=== PATIENT | male | born 1965 | race Caucasian/White ===

== ENCOUNTER 2023-08-11 16:05 | Outpatient (CLI) | payer OTHER, SELFPAY ==
--- NOTE | ~2023-08-11 | XR_ITS ---
EXAM: XR hand LT min 3V DATE: 08/11/2023 16:26 HISTORY: PAIN OF LEFT HAND . COMPARISON: None available. FINDINGS: Mildly decreased mineralization. No fracture or dislocation. No lytic or blastic lesion. M ild degenerative changes. No erosion or periosteal change. Soft tissues within normal limits. IMPRESSION: Mild osteopenia. Mild polyarticular osteoarthritis. Reviewed, dictated and finalized at location K.
== END 2023-08-11 16:06 | disposition home or self-care (01) ==
LOC: ANHIMG 16:13
PROVIDERS: PCP Internal Medicine; Visit Provider Internal Medicine
DX: M19.042 Primary osteoarthritis, left hand (principal); M85.842 Other specified disorders of bone density and structure, left hand
CPT/HCPCS: 73130

== ENCOUNTER 2024-02-16 08:53 | Outpatient (CLI) | payer OTHER, SELFPAY ==
--- NOTE | ~2024-02-16 | XR_ITS ---
XR shoulder RT min 2V DATE: 02/16/2024 09:12 INDICATION: Right shoulder pain. No injury. TECHNIQUE: 4 views COMPARISON: None FINDINGS: No fracture or dislocation, periosteal reaction or bone destruction or abnormal soft tissue calcification. IMPRESSION: No significant abnormality Reviewed, dictated and finalized at location B. IMPRESSION: No significant abnormality
--- NOTE | ~2024-02-16 | XR_ITS ---
XR elbow RT min 3V DATE: 02/16/2024 09:12 INDICATION: Right elbow pain. No injury. TECHNIQUE: 4 views COMPARISON: None FINDINGS: There is slight spurring of the head of the radius consistent with mild osteoarthritis. Rosanne nt spaces appear relatively preserved. No fracture, dislocation or joint effusion. No periosteal reaction or bone destruction. IMPRESSION: Minimal osteoarthritic change Reviewed, dictated and finalized at location B.
== END 2024-02-16 08:54 | disposition home or self-care (01) ==
PROVIDERS: PCP Internal Medicine; Visit Provider Internal Medicine
DX: M25.511 Pain in right shoulder (principal); M25.521 Pain in right elbow
CPT/HCPCS: 73030; 73080

== ENCOUNTER 2024-05-21 01:31 | Day surgery (SDC) | payer OTHER, SELFPAY ==
[2024-05-02 13:34] VITALS: BMI 27.3
[2024-05-21 09:30] VITALS: BP 166/86; PULSE 70; RESP 18; TEMP 36.4; O2SAT 97; BMI 27.0
--- NOTE | 2024-05-21 09:46 | P.PNAN_ITS ---
Anes - Initial Pre Proc Eval Procedure: Operation Date: 05/21/24 11:00 Proposed Procedures p Colonoscopy - Charles Sanches MD Date/Time: 05/21/24 09:46 Surgeon: Charles Sanches MD Pre Op Diagnosis: Hx. Diverticultis of large instestine w/o perforat Patient Data Age: 58 Gender: M Height: 1.75 m Weight: 83 kg Last Vital Signs Temp 97.6 F 05/21/24 09:30 Pulse 70 05/21/24 09:30 Resp 18 05/21/24 09:30 BP 166/86 H 05/21/24 09:30 Pulse Ox 97 05/21/24 09:30 O2 Del Method Room Air 05/21/24 09:30 Allergies Allergy/AdvReac Type Severity Reaction Status Date / Time No Known Allergies Allergy Verified 05/21/24 09:40 Home Medications Medication Instructions Recorded Confirmed Type No Home Medications 03/26/24 05/21/24 History Patient hx anesthesia problems: none Family hx anesthesia problems: none Results Review: All pre-operative results and documents have been reviewed as part of the pre- operative evaluation. [facility] Past Medical History Medical History History of right lateral epicondylitis Surgical History Surgical History H/O colectomy Family History Family History (Updated 03/26/24 @ 10:21 by Maggy Zimmerman PA-C) Mother No problems noted. Father Acute myocardial infarction Passed of [place] at age 69 Sibling Diverticulitis Social History Social History Smoking status: Former smoker Alcohol intake: current Drinks per week: 4 Living arrangements: with family Anes - Eval Final PreProcedure Day of Procedure 05/21/24 09:46 Patient weight: normal Heart: regular rate and rhythm Lungs: clear to auscultation Airway: Mallampati scale class II Neurological: alert and oriented Last oral intake: >/= 8 hours ASA classification: II Emergent: no Anesthetic plan: proceed Anesthesia type and monitoring: general GIVS and standard monitoring Results Review: All pre-operative results and documents have been reviewed as part of the pre- operative evaluation. Informed Consent: The patient's anesthetic plan and its attendant risks and benefits were discussed with the patient/family/POA. Questions were solicited and answers provided to the satisfaction of the patient/family/POA.
[2024-05-21] MEDS: LACTATED RINGERS 1,000 ML 150 ML IV CONT (09:49)
--- NOTE | 2024-05-21 10:13 | PM.HPGS ---
History of Present Illness History of Present Illness Consent: Risks, benefits, and alternatives have been discussed and questions answered. Patient agrees to proceed with procedure. Chief complaint: colon screening Narrative: Yoandy Jordan is a 58 year old male here for screening colonoscopy, had diverticulitis in 2018 that required surgery and also had colonoscopy Review of Systems Review of Systems: All systems reviewed & are unremarkable except as noted in HPI and below PMFSH Past Medical History Medical History (Updated 05/21/24 @ 10:14 by Charles Sanches MD) Colon cancer screening History of right lateral epicondylitis Surgical History Surgical History H/O colectomy Family History Family History (Updated 03/26/24 @ 10:21 by Maggy Zimmerman PA-C) Mother No problems noted. Father Acute myocardial infarction Passed of [place] at age 69 Sibling Diverticulitis Social History Social History Smoking status: Former smoker Alcohol intake: current Drinks per week: 4 Living arrangements: with family Meds Home Medications and Allergies Home Medications Medication Instructions Recorded Confirmed Type No Home Medications 03/26/24 05/21/24 History Allergies Allergy/AdvReac Type Severity Reaction Status Date / Time No Known Allergies Allergy Verified 05/21/24 09:40 Vital Signs Vital Signs - 24 hr 05/21/24 09:30 Temperature 97.6 F Pulse Rate 70 Respiratory Rate 18 Blood Pressure 166/86 H Pulse Oximetry 97 Oxygen Delivery Room Air Exam Const: General: comfortable and no acute distress HENMT: Face/Nose/Sinus: Normal nares present Eyes: General: appearance normal, both eyes and all related structures Neck: Neck: no JVD Resp: Auscultation: clear to auscultation bilaterally Cardio: Rate: regular rate Rhythm: regular rhythm GI: Inspection: non-distended GI Palp: Yes Soft to palpation Skin: General skin exam: normal color Neuro: General: gait normal Speech: normal speech Extrem: General: normal to inspection Psych: Mental Status: mental status grossly normal Assessment and Plan Assessment and plan (1) Colon cancer screening: Code(s): Z12.11 - Encounter for screening for malignant neoplasm of colon Status: Acute Assessment and Plan: colonoscopy
[2024-05-21 10:34] VITALS: BP 127/80; PULSE 66; RESP 18; O2SAT 94
[2024-05-21 10:44] VITALS: BP 124/85; PULSE 61; RESP 18; O2SAT 95
[2024-05-21 10:54] VITALS: BP 137/89; PULSE 60; RESP 18; O2SAT 96
== END 2024-05-21 11:08 | disposition home or self-care (01) ==
PROVIDERS: PCP Internal Medicine; Visit Provider Internal Medicine Gastroenterology
PROC: 0DJD8ZZ Inspection of Lower Intestinal Tract, Via Natural or Artificial Opening Endoscopic (ICD-10-PCS; CPT 45378; principal; 2024-05-21 11:00)
DX: Z12.11 Encounter for screening for malignant neoplasm of colon (principal); Z87.891 Personal history of nicotine dependence; K57.30 Diverticulosis of large intestine without perforation or abscess without bleeding; K64.8 Other hemorrhoids
CPT/HCPCS: 45378; J2001; J2704; J7120